=== PATIENT | female | born 2000 | race Two or more races ===

== ENCOUNTER 2022-03-11 08:43 | Emergency (ER) | payer OTHER ==
[~2022-03-11] VITALS: Ht 152.4 cm; Wt 95.3 kg
--- NOTE | 2022-03-11 08:59 | NUR ---
pt ambulated to bed 12
[2022-03-11 09:00] VITALS: BP 105/65
--- NOTE | 2022-03-11 10:06 | NUR ---
PATIENT PRESENTS TO ED WITH DYSURIAN . DENIES N/V/D; SKIN IS PINK/WARM/DRY; AAOX4 WITH EVEN AND STEADY GAIT; LUNGS CLEAR BL; HR EVEN AND REGULAR; PT DENIES ANY FEVER, CP, SOB, OR COUGH AT THIS TIME; PATIENT STATES PAIN OF 0/10 AT THIS TIME; VSS; PATIENT POSITIONED FOR COMFORT; HOB ELEVATED; BEDRAILS UP X2; BED DOWN. ER MD MADE AWARE OF PT STATUS.
[2022-03-11 11:25] LABS: APPEARANCE,URINE CLEAR (CLEAR); BILIRUBIN,URINE NEGATIVE (NEGATIVE); BLOOD, URINE NEGATIVE (NEGATIVE); COLOR,URINE YELLOW (YELLOW); LEUKOCYTE ESTERASE ,URINE NEGATIVE (NEGATIVE); NITRITE, URINE NEGATIVE (NEGATIVE); UGLUCOSE NEGATIVE (NEGATIVE)
[2022-03-11] MEDS ORDERED: ACET-10509 PO (11:49)
[2022-03-11] MEDS ORDERED: IBUP-2213 PO (11:49)
[2022-03-11 11:58] VITALS: BP 107/69
--- NOTE | 2022-03-11 12:01 | NUR ---
Patient discharged with v/s stable. Written and verbal after care instructions given and explained. Patient verbalized understanding. Ambulatory with steady gait. All questions addressed prior to discharge. Advised to follow up with PMD.
== END 2022-03-11 11:58 | disposition home or self-care (01) ==
LOC: MED 08:43
DX: R10.10 Upper abdominal pain, unspecified (principal); E66.8 Other obesity; Z68.1 Body mass index [BMI] 19.9 or less, adult
CPT/HCPCS: 81003; 81025; 99283

== ENCOUNTER 2023-02-06 23:24 | Emergency (ER) | payer OTHER ==
[~2023-02-06] VITALS: Ht 172.7 cm; Wt 86.2 kg
[~2023-02-06 23:24] MED LIST: ACET-10509 PO; IBUP-2213 PO
[2023-02-06 23:43] VITALS: BP 112/75; PULSE 96; RESP 20; TEMP 97.8; O2SAT 100
[2023-02-07] MEDS ORDERED: ALBUTEROL SULFATE/IPRATROPIU 3 ML SOL IH ONE
[2023-02-07 00:18] VITALS: PULSE 81; RESP 22; O2SAT 100
[2023-02-07 00:37] LABS: FLU A ANTIGEN negative (NEGATIVE); FLU B ANTIGEN negative (NEGATIVE)
[2023-02-07] MEDS ORDERED: KETOROLAC 30 MG/ML VIAL IM ONE (01:05)
[2023-02-07] MEDS ORDERED: ACETAMINOPHEN EXTRA STRENGTH 500 MG TAB PO ONE (01:05)
[2023-02-07] MEDS ORDERED: ALBU0.0912 INH (03:33)
[2023-02-07] MEDS ORDERED: PRED20TA5 PO (03:33)
== END 2023-02-07 03:52 | disposition home or self-care (01) ==
LOC: MED 23:24
DX: J45.901 Unspecified asthma with (acute) exacerbation (principal); J06.9 Acute upper respiratory infection, unspecified; R07.89 Other chest pain; Z20.822 Contact with and (suspected) exposure to COVID-19; Z79.899 Other long term (current) drug therapy; Z79.1 Long term (current) use of non-steroidal anti-inflammatories (NSAID)
CPT/HCPCS: 71046; 87426; 87804; 93005; 94640; 96372; 99285; J1885

== ENCOUNTER 2023-05-27 22:29 | Emergency (ER) | payer OTHER ==
[~2023-05-27] VITALS: Ht 152.4 cm; Wt 93.0 kg
[~2023-05-27 22:29] MED LIST changes: +ALBU0.0912 INH; +PRED20TA5 PO
[2023-05-27 22:45] VITALS: BP 106/52; PULSE 78; RESP 18; TEMP 97.8; O2SAT 98
[2023-05-27 22:51] VITALS: TEMP 97.8
[2023-05-28] MEDS: KETOROLAC 60 MG/2 ML VIAL IM ONE (00:14)
[2023-05-28 01:57] VITALS: BP 144/98; PULSE 71; RESP 16; O2SAT 99
[2023-05-28] MEDS ORDERED: NAPR-54 PO (02:57)
== END 2023-05-28 03:00 | disposition home or self-care (01) ==
LOC: MED 22:29
DX: S73.102A Unspecified sprain of left hip, initial encounter (principal); Z79.899 Other long term (current) drug therapy; W18.39XA Other fall on same level, initial encounter; Y92.89 Other specified places as the place of occurrence of the external cause; Y93.89 Activity, other specified; Y99.8 Other external cause status
CPT/HCPCS: 73502; 81025; 96372; 99283; J1885; Q0092

== ENCOUNTER 2023-09-27 15:43 | Emergency (ER) | payer OTHER ==
[~2023-09-27] VITALS: Ht 152.4 cm; Wt 93.2 kg
[~2023-09-27 15:43] MED LIST changes: +NAPR-337 PO
[2023-09-27 15:51] VITALS: BP 93/64; PULSE 88; RESP 20; TEMP 97.7; O2SAT 97
[2023-09-27 16:00] VITALS: O2SAT 98
[2023-09-27 16:58] LABS: BASOPHILS % (AUTO) 0.5 % (0.0-2.0); EOSINOPHILS # (AUTO) 0.2 K/uL (0-0.4); EOSINOPHILS % (AUTO) 3.2 % (0.0-4.0); HEMATOCRIT 40.2 % (36-48); HEMOGLOBIN 13.5 g/dL (12.0-16.0); LYMPHOCYTES # (AUTO) 1.4 K/uL (2.5-16.5); LYMPHOCYTES % (AUTO) 19.8 % (20.5-51.1); MEAN CORPUSCULAR HEMOGLOBIN 29 pg (27-31); MEAN CORPUSCULAR HGB CONC 34 g/dL (33-37); MEAN CORPUSCULAR VOLUME 85.9 fL (80-94); MONOCYTES # (AUTO) 0.6 K/uL (0.8-1.0); MONOCYTES % (AUTO) 8.5 % (1.7-9.3); NEUTROPHILS # (AUTO) 4.8 K/uL (1.8-7.7); PLATELET COUNT (AUTO) 144 K/uL (140-450); RED BLOOD CELL COUNT(AUTO) 4.68 MIL/uL (4.20-5.40); RED CELL DISTRIBUTION WIDTH 12.9 % (11.6-13.7); WHITE BLOOD COUNT (AUTO) 7.1 K/uL (4.8-10.8)
[2023-09-27 17:13] LABS: ANION GAP 14.6 (8-16); CALCIUM 8.8 mg/dL (8.5-10.1); CREATININE 0.7 mg/dL (0.6-1.3); POTASSIUM 3.6 mmol/L (3.5-5.1)
[2023-09-27 17:40] VITALS: BP 101/68; PULSE 86; RESP 20; TEMP 98; O2SAT 98
[2023-09-27] MEDS: LORazepam 0.5 MG TAB PO ONE (18:25)
== END 2023-09-27 20:15 | disposition home or self-care (01) ==
LOC: MED 15:43
DX: R07.9 Chest pain, unspecified (principal); F41.9 Anxiety disorder, unspecified; R42 Dizziness and giddiness; J45.909 Unspecified asthma, uncomplicated; Z98.890 Other specified postprocedural states; Z79.899 Other long term (current) drug therapy
CPT/HCPCS: 36415; 71045; 80048; 83880; 84484; 85025; 85379; 93005; 99285

== ENCOUNTER 2023-11-08 19:25 | Emergency (ER) | payer OTHER ==
[~2023-11-08] VITALS: Ht 152.4 cm; Wt 92.1 kg
[~2023-11-08 19:25] MED LIST changes: -ACET-10509 PO; +ACET500T99 PO
[2023-11-08 19:50] VITALS: BP 113/64; PULSE 78; RESP 16; TEMP 97.6; O2SAT 99
[2023-11-08 21:16] LABS: APPEARANCE,URINE HAZY (CLEAR); BILIRUBIN,URINE NEGATIVE (NEGATIVE); BLOOD, URINE NEGATIVE (NEGATIVE); COLOR,URINE YELLOW (YELLOW); LEUKOCYTE ESTERASE ,URINE TRACE (NEGATIVE); NITRITE, URINE NEGATIVE (NEGATIVE); PROTEIN,URINE NEGATIVE (NEGATIVE); UGLUCOSE NEGATIVE (NEGATIVE); UROBILINOGEN,URINE 0.2 EU/dL (0.2 - 1)
[2023-11-08 21:18] LABS: BACTERIA,URINE 1+ /HPF (None Seen); MUCUS,URINE None Seen /LPF (None Seen); RBC,URINE 0 /HPF (0-5); SQUAMOUS EPITHELIAL CELL,UR 0-3 (FEW) /LPF (0-3 (FEW)); WBC,URINE 0-5 /HPF (0-5)
[2023-11-08] MEDS ORDERED: NITR100C7 PO (21:21)
[2023-11-08] MEDS ORDERED: MIRABULK PO (21:21)
[2023-11-08] MEDS ORDERED: PYR100 PO (21:23)
== END 2023-11-08 21:25 | disposition home or self-care (01) ==
LOC: MED 19:25
DX: N39.0 Urinary tract infection, site not specified (principal); K59.00 Constipation, unspecified; J45.909 Unspecified asthma, uncomplicated; Z98.890 Other specified postprocedural states; Z79.899 Other long term (current) drug therapy
CPT/HCPCS: 81001; 81025; 87491; 99283